=== PATIENT | female | born 1965 | race Caucasian/White ===

== ENCOUNTER 2016-09-30 08:09 | Emergency (ER) | payer BC, OTHER ==
[~2016-09-30] VITALS: Ht 154.9 cm; Wt 52.2 kg
[2016-09-30] MEDS ORDERED: AMOX875T2 PO (08:30)
[2016-09-30] MEDS ORDERED: [UNRECOGNIZED DRUG - CODE] PO (08:31)
[2016-09-30 08:44] LABS: BASOPHILS % (AUTO) 0 % (0-10); EOSINOPHILS # (AUTO) 0.1 10^3/uL (0.0-0.3); EOSINOPHILS % (AUTO) 1 % (0-10); LYMPHOCYTES # (AUTO) 3.2 X 10^3 (1.0-4.0); LYMPHOCYTES % (AUTO) 29 % (12-44); MEAN CORPUSCULAR HEMOGLOBIN 28 PG (25-34); MEAN CORPUSCULAR HGB CONC 33 G/DL (32-36); MEAN CORPUSCULAR VOLUME 86 FL (80-99); MEAN PLATELET VOLUME 9.4 FL (7.4-10.4); MONOCYTES # (AUTO) 0.9 X 10^3 (0.0-1.0); MONOCYTES % (AUTO) 9 % (0-12); NEUTROPHILS # (AUTO) 6.6 X 10^3 (1.8-7.8); NEUTROPHILS % (AUTO) 61 % (42-75); PLATELET COUNT 250 10^3/uL (130-400); RED BLOOD COUNT 4.87 10^6/uL (4.35-5.85); RED CELL DISTRIBUTION WIDTH 14.3 % (10.0-14.5); WHITE BLOOD COUNT 10.9 10^3/uL (4.3-11.0)
[2016-09-30 08:53] LABS: BILIRUBIN,URINE NEGATIVE (NEGATIVE); KETONES,URINE NEGATIVE (NEGATIVE); LEUKOCYTE ESTERASE ,URINE NEGATIVE (NEGATIVE); NITRITE,URINE NEGATIVE (NEGATIVE); PH,URINE 6 (5-9); PROTEIN,URINE NEGATIVE (NEGATIVE); UROBILINOGEN,URINE NORMAL (NORMAL)
[2016-09-30 09:09] LABS: ALANINE AMINOTRANSFERASE 23 U/L (0-55); ALBUMIN 4.4 G/DL (3.2-4.5); ANION GAP 9 MMOL/L (5-14); ASPARTATE AMINO TRANSFERASE 19 U/L (5-34); BILIRUBIN,TOTAL 0.5 MG/DL (0.1-1.0); BLOOD UREA NITROGEN 15 MG/DL (7-18); BUN/CREATININE RATIO 19; CALCIUM 9.8 MG/DL (8.5-10.1); CARBON DIOXIDE 27 MMOL/L (21-32); CHLORIDE 107 MMOL/L (98-107); CREATININE SERUM 0.79 MG/DL (0.60-1.30); GFR ESTIMATED > 60; GLUCOSE 103 MG/DL (70-105); POTASSIUM 3.9 MMOL/L (3.6-5.0); SODIUM 143 MMOL/L (135-145)
[2016-09-30 09:14] LABS: SQUAMOUS EPITHELIAL CELL,UR 0-2 /HPF
--- NOTE | 2016-09-30 09:19 | Diagnostic Imaging Report ---
INDICATION: Neck pain and stiffness. EXAM: Cervical spine FINDINGS: AP and lateral views of the cervical spine show slight reversal of the lordotic curvature. Intervertebral disc spaces are well-maintained. There is no prevertebral soft tissue swelling. There are no fractures seen. The odontoid appears intact. Atlantoaxial relationship is normal. IMPRESSION: No acute abnormality is seen in the cervical spine. Dictated by: Dictated on workstation # [id number]
[2016-09-30] MEDS ORDERED: Flexeril (10:28)
--- NOTE | 2016-09-30 10:28 | ED Neck-Back Pain/Injury ---
General Chief Complaint: Head/Cervical Problems Stated Complaint: MENINGITIS Nursing Triage Note: AMBULATED TO ROOM 07 WEARING A MASK. COMPLAINTS OF HEADACHE AND STIFF NECK SINCE SAT. WAS TREATED AT URGENT CARE FOR SINUS INFECTION. WENT BACK TODAY FOR INCREASING PAIN IN HER NECK ET WAS TOLD TO COME TO ER AND TELL US SHE HAS MENINGITIS. PT HAS HAD MENINGITIS IN THE PAST. Nursing Sepsis Screen: No Definite Risk Source of Information: Patient Exam Limitations: No Limitations History of Present Illness Time Seen by Provider: 10:22 Initial Comments The patient is a 50-year-old white female who presents with complaints of neck pain. She reports that she had previously gone to urgent care this week and was told that she had a sinus infection. She continues to have neck pain and it seems to be getting worse. She then apparently returned this morning and inform them that she had had meningitis and she was advised to come here because of fear of recurrent meningitis. She states that this meningitis was suffered some 30 years ago and was said to be viral. She has run no fever and has no other systemic symptoms. There is also no numbness or tingling in the arms and no recent injury. Timing/Duration: 1 Week Pain/Injury Location: Neck Allergies and Home Medications Allergies Coded Allergies: Sulfa (Sulfonamide Antibiotics) (Verified Allergy, Severe, RASH, 09/30/16) Home Medications Amoxicillin 875 Mg Tablet, 875 MG PO BID, #20 (Reported) Loratadine 10 Mg Tab.rapdis, 10 MG PO DAILY, (Reported) Constitutional: see HPI EENTM: no symptoms reported Respiratory: no symptoms reported Cardiovascular: no symptoms reported Gastrointestinal: no symptoms reported Musculoskeletal: see HPI, neck pain Skin: no symptoms reported Psychiatric/Neurological: No Symptoms Reported Past Bvclmtr-Oupxgo-Hzlkep Hx Patient Social History Alcohol Use: Denies Use Recreational Drug Use: No Smoking Status: Never a Smoker Recent Foreign Travel: No Contact w/Someone Who Travel: No Recent Infectious Disease Expo: No Recent Hopitalizations: No Seasonal Allergies Seasonal Allergies: Yes Surgeries Surgeries: Hysterectomy, Tonsillectomy Physical Exam Vital Signs Vital Sign - Last 12Hours 09/30/16 08:15 Temp 97.7 Pulse 78 Resp 16 B/P (MAP) 165/98 Pulse Ox 99 Capillary Refill : Less Than 3 Seconds General Appearance: Mild Distress HEENT: Normal ENT Inspection Neck: Normal Inspection Cardiovascular: Regular Rate, Rhythm, No Edema, No Gallop, No JVD, No Murmur, Normal Peripheral Pulses Respiratory: Chest Non Tender, Lungs Clear, Normal Breath Sounds, No Accessory Muscle Use, No Respiratory Distress, Accessory Muscle Use Gastrointestinal: Normal Bowel Sounds, No Organomegaly, No Pulsatile Mass, Non Tender, Soft Back: Normal Inspection Extremity: Normal Capillary Refill, Normal Inspection, Normal Range of Motion, Non Tender, No Calf Tenderness, No Pedal Edema, Calf Tenderness Neurologic/Psychiatric: Alert, Oriented x3, No Motor/Sensory Deficits, Normal Mood/Affect, software project engineer II-XII Norm as Tested, Abnormal Cerebellar Tests Skin: Normal Color, Warm/Dry, Cool, Cyanosis Lymphatic: No Adenopathy Comments There is pain to palpation but only mild along the paracervical muscles. She is able to touch her chin to her sternum. There is some pain to passive range of motion in the horizontal axis. Progress/Results/Core Measures Results/Orders Lab Results Laboratory Tests Test 09/30/16 08:35 09/30/16 08:46 Range/Units White Blood Count 10.9 4.3-11.0 10^3/uL Red Blood Count 4.87 4.35-5.85 10^6/uL Hemoglobin 13.6 11.5-16.0 G/DL Hematocrit 42 35-52 % Mean Corpuscular Volume 86 80-99 FL Mean Corpuscular Hemoglobin 28 25-34 PG Mean Corpuscular Hemoglobin Concent 33 32-36 G/DL Red Cell Distribution Width 14.3 10.0-14.5 % Platelet Count 250 130-400 10^3/uL Mean Platelet Volume 9.4 7.4-10.4 FL Neutrophils (%) (Auto) 61 42-75 % Lymphocytes (%) (Auto) 29 12-44 % Monocytes (%) (Auto) 9 0-12 % Eosinophils (%) (Auto) 1 0-10 % Basophils (%) (Auto) 0 0-10 % Neutrophils # (Auto) 6.6 1.8-7.8 X 10^3 Lymphocytes # (Auto) 3.2 1.0-4.0 X 10^3 Monocytes # (Auto) 0.9 0.0-1.0 X 10^3 Eosinophils # (Auto) 0.1 0.0-0.3 10^3/uL Basophils # (Auto) 0.0 0.0-0.1 10^3/uL Sodium Level 143 135-145 MMOL/L Potassium Level 3.9 3.6-5.0 MMOL/L Chloride Level 107 98-107 MMOL/L Carbon Dioxide Level 27 21-32 MMOL/L Anion Gap 9 5-14 MMOL/L Blood Urea Nitrogen 15 7-18 MG/DL Creatinine 0.79 0.60-1.30 MG/DL Estimat Glomerular Filtration Rate > 60 BUN/Creatinine Ratio 19 Glucose Level 103 70-105 MG/DL Calcium Level 9.8 8.5-10.1 MG/DL Total Bilirubin 0.5 0.1-1.0 MG/DL Aspartate Amino Transf (AST/SGOT) 19 5-34 U/L Alanine Aminotransferase (ALT/SGPT) 23 0-55 U/L Alkaline Phosphatase 51 40-136 U/L Total Protein 8.0 6.4-8.2 G/DL Albumin 4.4 3.2-4.5 G/DL Urine Color YELLOW Urine Clarity SLIGHTLY CLOUDY Urine pH 6 5-9 Urine Specific Roby 1.020 1.016-1.022 Urine Protein NEGATIVE NEGATIVE Urine Glucose (UA) NEGATIVE NEGATIVE Urine Ketones NEGATIVE NEGATIVE Urine Nitrite NEGATIVE NEGATIVE Urine Bilirubin NEGATIVE NEGATIVE Urine Urobilinogen NORMAL NORMAL MG/DL Urine Leukocyte Esterase NEGATIVE NEGATIVE Urine RBC (Auto) 1+ H NEGATIVE Urine RBC RARE /HPF Urine WBC NONE /HPF Urine Squamous Epithelial Cells 0-2 /HPF Urine Crystals NONE /LPF Urine Bacteria NEGATIVE /HPF Urine Casts NONE /LPF Urine Mucus NEGATIVE /LPF Urine Culture Indicated NO My Orders Orders - TONY ARROYO MD Cbc With Automated Diff (09/30/16 08:30) Comprehensive Metabolic Panel (09/30/16 08:30) Ua Culture If Indicated (09/30/16 08:30) Cervical Spine 3 Views Or Less (09/30/16 08:31) Vital Signs/I&O Vital Sign - Last 12Hours 09/30/16 08:15 Temp 97.7 Pulse 78 Resp 16 B/P (MAP) 165/98 Pulse Ox 99 Blood Pressure Mean: 120 Departure Impression Impression: Primary Impression: paracervical muscle pain Disposition: 01 HOME, SELF-CARE Condition: Stable/Unchanged Departure-Patient Inst. Decision time for Depature: 10:27 Referrals: NO,LOCAL PHYSICIAN (PCP) Primary Care Physician Patient Instructions: Cervical Muscle Strain (DC) Add. Discharge Instructions: All discharge instructions reviewed with patient and/or family. Voiced understanding. Use ibuprofen 600 mg 4 times daily Use heating pad 3 or 4 times a day Flexeril twice daily as prescribed Scripts [Flexeril] No Conflict Check 10 MG twice a day Y for SPASMS, #20 Prov: TONY ARROYO MD 09/30/16 TONY ARROYO MD Sep 30, 2016 10:28
[2016-09-30 10:49] VITALS: BP 134/85
== END 2016-09-30 10:49 | disposition home or self-care (01) ==
LOC: EDBD 08:13 → ER 08:13
DX: M54.2 Cervicalgia (principal); M79.1 Myalgia; Z86.61 Personal history of infections of the central nervous system
CPT/HCPCS: 36415; 72040; 80053; 81000; 85025

== ENCOUNTER → 2019-02-14 | Outpatient (CLI) | payer BC, OTHER ==
[~2019-02-14] MED LIST: AMOX875T2 PO; Flexeril; [UNRECOGNIZED DRUG - CODE] PO
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
== END ==
LOC: RAD 12:54
PROVIDERS: ATTEND Nurse Practitioner Community Health
DX: S13.4XXA Sprain of ligaments of cervical spine, initial encounter (principal); M47.812 Spondylosis without myelopathy or radiculopathy, cervical region
CPT/HCPCS: 72141